=== PATIENT | male | born 1965 | race Two or more races ===

== ENCOUNTER 2024-09-27 10:24 | Outpatient (REF) | payer OTHER, SELFPAY ==
--- NOTE | ~2024-09-27 | XR_ITS ---
EXAMINATION: ORBITAL FOREIGN BODY SCREENING CLINICAL INFORMATION: Pre-MRI screening. COMPARISON: None. TECHNIQUE: Three views of the orbits were obtained. FINDINGS: Three views demonstrate no radiopaque foreign bodies. XR/XR pre mri screening IMPRESSION: No metallic foreign body identified. Electronically signed by: Nitin Moscoso MD 09/27/2024 01:43 PM EST
== END 2024-09-27 10:25 | disposition home or self-care (01) ==
LOC: HO.XRAY 10:24
PROVIDERS: Visit Provider Radiology Diagnostic Radiology
DX: Z13.89 Encounter for screening for other disorder (principal)

== ENCOUNTER 2024-10-02 18:05 | Outpatient (REF) | payer OTHER, SELFPAY | END 2024-10-02 18:06 | disposition home or self-care (01) | LOC: HO.MRI 18:05 | PROVIDERS: Visit Provider Registered Nurse | DX: M54.41 Lumbago with sciatica, right side (principal) | CPT/HCPCS: 72148 ==